=== PATIENT | male | born 1970 | race Two or more races ===

== ENCOUNTER 2025-05-07 11:14 | Emergency (ER) | payer MEDICAID ==
[~2025-05-07] VITALS: Ht 172.7 cm; Wt 70.7 kg
[2025-05-07 12:28] LABS: Hematocrit 45.8 % (41.0-53.0); Hemoglobin 16.2 g/dL (13.5-17.5); Mean Corpuscular Hemoglobin 32.9 pg (28.0-32.0); Mean Corpuscular Volume 92.8 fL (80.0-100.0); Nucleated Red Blood Cells % 0.0 %
--- NOTE | 2025-05-07 12:28 | ED.PDOC ---
HPI (NEURO) HPI Comments 55y M who presents to the ED for chief complaint of dizziness. Pt states he has been feeling sick for the past 4 days and states he has started to have nausea, vomiting with associated intermittent episodes of dizziness. Pt states he has noticed his dizziness episiodes have been preceded by episodes of nasuea, vomiting and waves of lower abdominal pain. Patient states when the symptoms are severe, he gets the spins." He denies any current dizziness. Pt states he has also been having intermittent, diffusely located, lower pelvic area abdominal pain with associated exacerbation of pain with episodes of dizziness and no relieving factors. Pt has also been having associated dysuria but otherwise denies any other symptoms. Pt denies any recent sick contacts. Pt has noted heart rate of 104, but otherwise has stable vitals including BP 111/87, 02 sat of 97% on room air, rr 17, and temp of 98.5F. Pt otherwise is alert and oriented x 4 and no noted changes in vision, speech or gait is noted. Pt otherwise denies any other symptoms at this time. Chief Complaint: Dizziness Time Seen by MD: 12:15 Reviewed Notes: Medications, Allergies Information Source: Patient Mode of Arrival: Ambulatory Brought in by: self Past Medical History PAST MEDICAL HISTORY: Denies Surgical History (Other): arm and shoulder surgery Family History Family History: Unknown Social History Smoker: Non-Smoker Alcohol: Denies ETOH Use Drugs: Denies Drug Use Lives In: Home Constitutional: denies: chills, diaphoresis, fatigue, fever, malaise, sweats, weakness, others EENTM: denies: blurred vision, double vision, ear bleeding, ear discharge, ear drainage, ear pain, ear ringing, eye pain, eye redness, hearing loss, mouth pain, mouth swelling, nasal discharge, nose bleeding, nose congestion, nose pain, photophobia, tearing, throat pain, throat swelling, voice changes, others Respiratory: denies: cough, hemoptysis, orthopnea, SOB at rest, shortness of breath, SOB with excertion, stridor, wheezing, others Cardiovascular: denies: chest pain, dizzy spells, diaphoresis, Dyspnea on exertion, edema, irregular heart beat, left arm pain, lightheadedness, palpitations, PND, syncope, others Gastrointestinal: reports: nausea, vomiting; denies: abdomen distended, abdominal pain, blood streaked bowels, constipated, diarrhea, dysphagia, difficulty swallowing, hematemesis, melena, poor appetite, poor fluid intake, rectal bleeding, rectal pain, others Genitourinary: denies: burning, dysuria, flank pain, frequency, hematuria, incontinence, penile discharge, penile sore, pain, testicle pain, testicle swelling, urgency, others Neurological: reports: dizziness; denies: fainting, headache, left sided numbness, left sided weakness, numbness, paresthesia, pre-existing deficit, right sided numbness, right sided weakness, seizure, speech problems, tingling, tremors, weakness, others Musculoskeletal: denies: back pain, gout, joint pain, joint swelling, muscle pain, muscle stiffness, neck pain, others Integumetry: denies: bruises, change in color, change in hair/nails, dryness, laceration, lesions, lumps, rash, wounds, others Allergic/Immunocompromised: denies: Difficulty Healing, Frequent Infections, Hives, Itching, others Hematologic/Lymphatic: denies: anemia, blood clots, easy bleeding, easy bruising, swollen glands, others Endocrine: denies: excessive hunger, excessive sweating, excessive thirst, excessive urination, flushing, intolerance to cold, intolerance to heat, unexplained weight gain, unexplained weight loss, others Psychiatric: denies: anxiety, bipolar disorder, depression, hopeless, panic disorder, schizophrenia, sleepless, suicidal, others All Other Systems: Reviewed and Negative Physical Exam General Appearance: No Apparent Distress HEENT: Other (Pupils and face symmetric. Moist mucous membranes.) Neck: Full Range of Motion, Non-Tender, Normal Inspection, Supple Respiratory: Lungs Clear, No Accessory Muscle Use, No Respiratory Distress, Normal Breath Sounds Cardiovascular: No Edema, No JVD, Regular Rate/Rhythm Breast Exam: Deferred Gastrointestinal: LLQ, RLQ, Soft, Suprapubic, Tenderness Genitalia: Deferred Pelvic: Deferred Rectal: Deferred Extremities: Normal inspection, Normal range of motion, Non-tender, No pedal edema Neurologic: Alert (Oriented x4), Normal Affect, Normal Mood, Other (Ambulatory. No gross focal deficit.) Cerebellar Function: NOT DONE Reflexes: NOT DONE Skin: Dry, Normal Color, Warm Lymphatic: NOT DONE EKG EKG : Comments Sinus rhythm, rate 83, normal intervals, normal axis, normal QRS, no ST/T changes. Was a procedure done? Was a procedure done?: No Differential Diagnosis (SZ) Seizure: Hypocalcemia, Hypoglycemia, Hyponatremia General Weakness: Anemia, Dehydration, Electrolyte imbalance, Encephalopathy, Hypovolemia, TIA, Vertigo: central, Vertigo: peripheral, Vestibular neuronitis, Other (UTI, sepsis, viral syndrome, gastroenteritis, gastritis, colitis, diverticulitis, among others) X-Ray, Labs, Meds, VS Vital Signs Date Time Temp Pulse Resp B/P (MAP) Pulse Ox O2 Delivery O2 Flow Rate FiO2 05/07/25 14:51 82 20 97 Room Air 05/07/25 14:51 98.6 82 20 115/69 (84) 97 98.6 05/07/25 12:49 98.7 100 20 122/85 (97) 96 98.7 05/07/25 11:45 83 05/07/25 11:31 98.5 104 17 111/87 (95) 97 98.5 Lab Test 05/07/25 15:10 05/07/25 12:43 05/07/25 11:55 05/07/25 11:33 Range/Units Troponin I High Sensitivity 6 7 7 </=54 ng/L Lactic Acid Level 1.4 0.4-2.0 mmol/L White Blood Count 8.2 4.4-10.8 10^3/uL Red Blood Count 4.94 4.5-5.90 10^6/uL Hemoglobin 16.2 13.5-17.5 g/dL Hematocrit 45.8 41.0-53.0 % Mean Corpuscular Volume 92.8 80.0-100.0 fL Mean Corpuscular Hemoglobin 32.9 H 28.0-32.0 pg Mean Corpuscular Hemoglobin Concent 35.4 32.0-36.0 g/dL Red Cell Distribution Width 12.6 11.8-14.3 % Platelet Count 288 140-450 10^3/uL Mean Platelet Volume 7.9 6.9-10.8 fL Neutrophils (%) (Auto) 72.9 37.0-80.0 % Lymphocytes (%) (Auto) 16.3 10.0-50.0 % Monocytes (%) (Auto) 9.9 0.0-12.0 % Eosinophils (%) (Auto) 0.3 0.0-7.0 % Basophils (%) (Auto) 0.6 0.0-2.0 % Neutrophils # (Auto) 6.0 1.6-8.6 10 ^3/uL Lymphocytes # (Auto) 1.3 0.4-5.4 10 ^3/uL Monocytes # (Auto) 0.8 0-1.3 10 ^3/uL Eosinophils # (Auto) 0 0-0.8 10 ^3/uL Basophils # (Auto) 0 0-0.2 10 ^3/uL Nucleated Red Blood Cells 0.0 % Sodium Level 133 L 136-145 mmol/L Potassium Level 3.5 3.5-5.1 mmol/L Chloride Level 99 98-107 mmol/L Carbon Dioxide Level 16 L 20-31 mmol/L Anion Gap 18 H 5-15 Blood Urea Nitrogen 16 9-23 mg/dL Creatinine 1.19 0.700-1.30 mg/dL Glomerular Filtration Rate Calc 72 >90 mL/min BUN/Creatinine Ratio 13.4 10.0-20.0 Serum Glucose 93 74-106 mg/dL Calcium Level 10.8 H 8.7-10.4 mg/dL Total Bilirubin 0.9 0.2-1.0 mg/dL Aspartate Amino Transferase (AST) 38 13-40 U/L Alanine Aminotransferase (ALT) 23 7-40 U/L Alkaline Phosphatase 96 46-116 U/L B-Type Natriuretic Peptide 13.27 0-100 pg/mL Total Protein 7.7 5.7-8.2 g/dL Albumin 5.2 H 3.2-4.8 g/dL POC Glucose 94 70-106 mg/dl Current Medications Medications (Trade) Dose Ordered Sig/Juan A Route Start Time Stop Time Status Last Admin Sodium Chloride 2,000 ml @ 1,000 mls/hr Q2H ONCE IV 05/07/25 12:30 05/07/25 14:29 DC 05/07/25 12:56 Ondansetron HCl (Zofran) 4 mg ONCE ONCE IV 05/07/25 12:30 05/07/25 12:33 DC 05/07/25 12:56 Meclizine HCl (Antivert Tablet) 50 mg ONCE ONCE PO 05/07/25 12:30 05/07/25 12:33 DC 05/07/25 12:56 Ceftriaxone Sodium 50 ml @ 100 mls/hr ONCE ONCE IV 05/07/25 15:15 05/07/25 15:44 DC 05/07/25 15:[address] [address] Ph: [phone] DIAGNOSTIC IMAGING Diagnostic Imaging Report : [id number] Signed PATIENT: VIRI DOVER EARLACCT: [id number] UNIT: [id number] : 1970 LOC: ER ROOM / BED: / AGE / SEX: 55 / M ADM STATUS: REG ER SERVICE 1217 ORDERING PHYSICIAN: ALPESH CRAWFORD MD PROCEDURE(s): ABPL - CT AB PEL WO CON-NO ORAL OR IV REASON: low abd pain, n/v, dizzy ORDER NUMBER(s): [id number], ACCESSION NUMBER(s): [id number] CT CT AB PEL WO CON-NO ORAL OR IV INDICATION: low abd pain, n/v, dizzy EXAM DATE: 05/07/2025 12:19 PM COMPARISON: None RADIATION DOSE: CTDIvol: 7 mGy, DLP: 425 mGy*cm PROCEDURE: Helical CT images were obtained of the abdomen and pelvis without IV contrast Sagittal and coronal reconstructions are provided. ORAL CONTRAST: None. ADDITIONAL IMAGES / REFORMATS: None All CT scans at this medical facility are performed using dose modulation techniques as appropriate to a performed exam i ncluding the following: Automated exposure control was utilized; adjustment of the MA and/or KV according to patient size; and use of iterative reconstruction technique. FINDINGS: LUNG BASE: Normal. LIVER: Normal. GALLBLADDER AND BILIARY TREE: No calcified gallstones. Normal caliber wall. No intra- or extrahepatic biliary ductal dilation. PANCREAS: Normal. SPLEEN: Normal. BOWEL: Mild colonic diverticulosis. Normal appendix. ADRENALS: Normal. KIDNEYS AND URETER: Punctate nonobstructive right kidney stone. BLADDER: Normal. REPRODUCTIVE ORGANS: Normal. LYMPH NODES:No lymphadenopathy. PERITONEUM: No ascites or free air. No other fluid collection. VESSELS: Scattered atherosclerotic calcifications are noted. RETROPERITONEUM: Normal. ABDOMINAL WALL: Normal. BONES: Scattered osseous degenerative changes are noted. IMPRESSION: No acute intraabdominal abnormality. Mild colonic diverticulosis. Normal appendix. Punctate nonobstructive right kidney stone. ATED BY: LEON REED MD DICTATED DATE/TIME: 05/07/251258 SIGNED BY: LEON REED MD SIGNED DATE/TIME: 05/07/251258 CC: X-Ray, Labs, Meds, VS Comment 55-year-old male with no significant past medical history complaining of nausea, vomiting, lower abdominal pain and dark urine, associated with intermittent episodes of dizziness. Initial vitals remarkable for heart rate 104 Exam remarkable for lower abdominal tenderness to palpation Rhythm strip independently interpreted by me: Sinus rhythm, rate eighty-three, no ectopy. CT abdomen and pelvis IMPRESSION: No acute intraabdominal abnormality. Mild colonic diverticulosis. Normal appendix. Punctate nonobstructive right kidney stone. CBC unremarkable, CMP remarkable for sodium 133, lactate normal, troponin and BNP negative, UA pending Patient treated with the following in the ED: 2 L 0.9 normal saline IV bolus, Zofran 4 mg IV, meclizine 50 mg p.o., Rocephin 1 g IV On re-evaluation, patient states he feels better. Vitals were stable. He is neurologically intact. Hospitalization was considered, however patient had an essentially unremarkable workup with the exception of nonobstructive right kidney stone on CT and UA which is still pending. Patient was treated with Rocephin IV to cover possible UTI, as he is feeling better and is appearing stable for discharge at this point. Rx Zofran, Bentyl, Keflex, meclizine Time of 1ST Reevaluation: 15:11 Reevaluation 1ST: Improved Patient Education/Counseling: Diagnosis, Treatment Family Education/Counseling: No Family Present Departure 1 Departure Time of Disposition: 15:00 Impression: Primary Impression: Nausea and vomiting Additional Impression: Dizziness Disposition: 01 HOME / SELF CARE / HOMELESS Condition: Stable Additional Instructions: Your blood tests were unremarkable. Your CT scan showed an incidental finding of a kidney stone in the right kidney. This is unlikely to be the cause of your symptoms. I have enclosed the report below. I have prescribed medication for your symptoms and antibiotics to cover a possible infection. Follow-up with your primary doctor in 1-2 days. Return to ER for persistent or worsening symptoms. [place] [id number] Ph: [phone] DIAGNOSTIC IMAGING Diagnostic Imaging Report : [id number] Signed PATIENT: VIRI DOVER ACCT: [id number] UNIT: [id number] : 1970 LOC: ER ROOM / BED: / AGE / SEX: 55 / M ADM STATUS: REG ER SERVICE 1217 ORDERING PHYSICIAN: ALPESH CRAWFORD MD PROCEDURE(s): ABPL - CT AB PEL WO CON-NO ORAL OR IV REASON: low abd pain, n/v, dizzy ORDER NUMBER(s): [id number], ACCESSION NUMBER(s): [id number] CT CT AB PEL WO CON-NO ORAL OR IV INDICATION: low abd pain, n/v, dizzy EXAM DATE: 05/07/2025 12:19 PM COMPARISON: None RADIATION DOSE: CTDIvol: 7 mGy, DLP: 425 mGy*cm PROCEDURE: Helical CT images were obtained of the abdomen and pelvis without IV contrast Sagittal and coronal reconstructions are provided. ORAL CONTRAST: None. ADDITIONAL IMAGES / REFORMATS: None All CT scans at this medical facility are performed using dose modulation techniques as appropriate to a performed exam including the following: Automated exposure control was utilized; adjustment of the MA and/or KV according to patient size; and use of iterative reconstruction technique. FINDINGS: LUNG BASE: Normal. LIVER: Normal. GALLBLADDER AND BILIARY TREE: No calcified gallstones. Normal caliber wall. No intra- or extrahepatic biliary ductal dilation. PANCREAS: Normal. SPLEEN: Normal. BOWEL: Mild colonic diverticulosis. Normal appendix. ADRENALS: Normal. KIDNEYS AND URETER: Punctate nonobstructive right kidney stone. BLADDER: Normal. REPRODUCTIVE ORGANS: Normal. LYMPH NODES:No lymphadenopathy. PERITONEUM: No ascites or free air. No other fluid collection. VESSELS: Scattered atherosclerotic calcifications are noted. RETROPERITONEUM: Normal. ABDOMINAL WALL: Normal. BONES: Scattered osseous degenerative changes are noted. IMPRESSION: No acute intraabdominal abnormality. Mild colonic diverticulosis. Normal appendix. Punctate nonobstructive right kidney stone. ATED BY: LEON REED MD DICTATED DATE/TIME: 05/07/25 3019 e-Prescriptions Cephalexin Monohydrate (Cephalexin) 500 Mg Cap 1 CAP PO QID for 10 Days, #40 CAP Prov: ALPESH CRAWFORD MD 05/07/25 Meclizine HCl (Meclizine 25) 25 Mg Tab 25 MG PO Q8HP PRN, #30 TAB Prn dizziness Prov: ALPESH CRAWFORD MD 05/07/25 Dicyclomine Hcl (BENTYL CAPSULE) 10 Mg Cp 2 CAP PO Q6HP PRN, #30 CAP 11 Refills Prn abdominal pain Prov: ALPESH CRAWFORD MD 05/07/25 Ondansetron Odt 4MG Tab (ZOFRAN PO) 4 Mg Tb 4 MG PO TID PRN, #30 TAB Prn nausea/vomiting ODT TAB-DISSOLVE IN MOUTH, THEN SWALLOW Prov: ALPESH CRAWFORD MD 05/07/25 Discharged With: Relative Critical Care Note Critical Care Time?: No Stability Stability form required: No Heart Score Heart Score: Heart Score Response (Comments) Value History N/A 0 EKG N/A 0 Age N/A 0 Risk Factors N/A 0 Troponin N/A 0 Total 0 I personally scribed for ALPESH CRAWFORD MD (MICHEL) on 05/07/25 at 12:28. Electronically submitted by Deb Velazquez ([email or web address]). I personally scribed for ALPESH CRAWFORD MD (MICHEL) on 05/07/25 at 13:22. Electronically submitted by Deb Velazquez ([email or web address]). ALPESH CRAWFORD MD May 07, 2025 12:28
[2025-05-07 12:45] LABS: Alanine Aminotransferase 23 U/L (7-40); Albumin 5.2 g/dL (3.2-4.8); Alkaline Phosphatase 96 U/L (46-116); Anion Gap 18 (5-15); BUN/Creatinine Ratio 13.4 (10.0-20.0); Blood Urea Nitrogen 16 mg/dL (9-23); Calcium 10.8 mg/dL (8.7-10.4); Carbon Dioxide 16 mmol/L (20-31); Chloride 99 mmol/L (98-107); Glucose 93 mg/dL (74-106); Potassium 3.5 mmol/L (3.5-5.1); Sodium 133 mmol/L (136-145); Total Protein 7.7 g/dL (5.7-8.2)
[2025-05-07 12:46] LABS: Bilirubin, Total 0.9 mg/dL (0.2-1.0)
[2025-05-07] MEDS: ONDANSETRON HCL 4 MG/2 ML VIAL IV ONE (12:56)
[2025-05-07] MEDS: MECLIZINE HCL 25 MG TAB PO ONE (12:56)
[2025-05-07] MEDS: SODIUM CHLORIDE 0.9% 2,000 ML IV ONE (12:56)
--- NOTE | 2025-05-07 13:02 | DVH ---
CT CT AB PEL WO CON-NO ORAL OR IV INDICATION: low abd pain, n/v, dizzy EXAM DATE: 05/07/2025 12:19 PM COMPARISON: None RADIATION DOSE: CTDIvol: 7 mGy, DLP: 425 mGy*cm PROCEDURE: Helical CT images were obtained of the abdomen and pelvis without IV contrast Sagittal and coronal reconstructions are provided. ORAL CONTRAST: None. ADDITIONAL IMAGES / REFORMATS: None All C T scans at this medical facility are performed using dose modulation techniques as appropriate to a p erformed exam including the following: Automated exposure control was utilized; adjustment of the MA and/or KV according to patient size; and use of iterative reconstruction technique. FINDINGS: LUNG BASE: Normal. LIVER: Normal. GALLBLADDER AND BILIARY TREE: No calcified gallstones. Normal caliber wall. No intra- or extrahepatic biliary ductal dilation. PANCREAS: Normal. SPLEEN: Normal. BOWEL: Mild colonic diverticulosis. Normal appendix. ADRENALS: Normal. KIDNEYS AND URETER: Punctate nonobstructive right kidney stone. BLADDER: Normal. REPRODUCTIVE ORGANS: Normal. LYMPH NODES:No lymphadenopathy. PERITONEUM: No ascites or free air. No other fluid collection. VESSELS: Scattered atherosclerotic calcifications are noted. RETROPERITONEUM: Normal. ABDOMINAL WALL: Normal. BONES: Scattered osseous degenerative changes are noted. IMPRESSION: No acute intraabdominal abnormality. Mild colonic diverticulosis. Normal appendix. Punctate nonobstructive right kidney stone.
[2025-05-07 14:51] VITALS: BP 115/69; PULSE 82; RESP 20; TEMP 98.6; O2SAT 97
[2025-05-07] MEDS ORDERED: DICY10CA PO (15:16)
[2025-05-07] MEDS ORDERED: CEPH500C PO (15:16)
[2025-05-07] MEDS ORDERED: ZOFR4T PO (15:16)
[2025-05-07] MEDS ORDERED: MECL1TAB42 PO (15:16)
[2025-05-07] MEDS: cefTRIAXone 1GM/50ML D5W 50 ML IV ONE (15:21)
--- NOTE | 2025-05-08 06:35 | ECG ---
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
== END 2025-05-07 16:01 | disposition home or self-care (01) ==
LOC: ER 11:14
DX: R42 Dizziness and giddiness (principal); R11.2 Nausea with vomiting, unspecified; R10.30 Lower abdominal pain, unspecified; R82.998 Other abnormal findings in urine; R06.02 Shortness of breath
CPT/HCPCS: 36415; 74176; 80053; 82947; 83605; 83880; 84484; 85025; 87040; 93005; 96361; 96365; 96375; 99285; J0696; J2405; J7030; J8597; 82962

== ENCOUNTER 2025-05-10 16:52 | Inpatient (IN) | payer MEDICAID ==
[~2025-05-10] VITALS: Ht 175.3 cm; Wt 76.3 kg
[~2025-05-10 16:52] MED LIST: CEPH500C PO; DICY10CA PO; MECL1TAB42 PO; ZOFR4T PO
--- NOTE | 2025-05-10 17:00 | ECG ---
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
--- NOTE | 2025-05-10 17:25 | DVH ---
XY CHEST PORTABLE, HISTORY: near syncope COMPARISON: None None TECHNICAL DATA: 1 view of the chest was obtained. FINDINGS: Lines and tubes: None Cardiomediastinal silhouette: normal Pulmonary vasculature: normal Lung expansion: normal Lung airspace: normal Lung interstitium: normal Pleura: normal Pneumothorax: no Bones: Unremarkable Other: no IMPRESSION: No acute intrathoracic abnormality.
[2025-05-10 17:33] LABS: Hematocrit 41.8 % (41.0-53.0); Hemoglobin 14.5 g/dL (13.5-17.5); Mean Corpuscular Hemoglobin 31.9 pg (28.0-32.0); Mean Corpuscular Volume 92.1 fL (80.0-100.0); Nucleated Red Blood Cells % 0.0 %
[2025-05-10 17:37] LABS: Anion Gap 20 (5-15); Calcium 9.9 mg/dL (8.7-10.4)
[2025-05-10 17:42] LABS: BUN/Creatinine Ratio 10.5 (10.0-20.0); Blood Urea Nitrogen 12 mg/dL (9-23)
[2025-05-10] MEDS: SODIUM CHLORIDE 0.9% 1,000 ML IV ONE (17:46)
[2025-05-10] MEDS: PANTOPRAZOLE 40 MG/10 ML VIAL INJ IV ONE (17:47)
[2025-05-10 18:00] VITALS: PULSE 84; RESP 16; O2SAT 96
[2025-05-10 18:03] LABS: Carbon Dioxide 18 mmol/L (20-31); Chloride 97 mmol/L (98-107); Glucose 69 mg/dL (74-106); Potassium 3.3 mmol/L (3.5-5.1); Sodium 135 mmol/L (136-145)
[2025-05-10 19:41] LABS: Urine Protein, UAD 1+ (Negative)
--- NOTE | 2025-05-10 20:10 | ED.PDOC ---
History of Present Illness HPI Comments 55 y/o M is BIBA for c/c generalized weakness, lightheadedness, and dizziness. Per EMS report, patient endorses on sudden onset of symptoms, while at an [facility] facility, this evening. Patient reports only notable event of taking a new prescription medication he was given following previous ED visit for similar symptoms on 05/07/25. Otherwise, endorses on having no significant history. Denies any nausea, vomiting, abdominal pain, fever, chills, urinary symptoms, chest pain, shortness of breath, or further associated symptoms. Chief Complaint: General Weakness Time Seen by MD: 16:50 Reviewed Notes: Nurses Notes, Line Out Man Notes, Medications, Allergies Allergies: Coded Allergies: NO KNOWN ALLERGIES (Unverified , 05/07/25) Home Meds Active Scripts Cephalexin Monohydrate (Cephalexin) 500 Mg Cap, 1 CAP PO QID for 10 Days, #40 CAP Prov:ALPESH CRAWFORD MD 05/07/25 Meclizine HCl (Meclizine 25) 25 Mg Tab, 25 MG PO Q8HP PRN, #30 TAB Prn dizziness Prov:ALPESH CRAWFORD MD 05/07/25 Dicyclomine Hcl (BENTYL CAPSULE) 10 Mg Cp, 2 CAP PO Q6HP PRN, #30 CAP 11 Refills Prn abdominal pain Prov:ALPESH CRAWFORD MD 05/07/25 Ondansetron Odt 4MG Tab (ZOFRAN PO) 4 Mg Tb, 4 MG PO TID PRN, #30 TAB Prn nausea/vomiting ODT TAB-DISSOLVE IN MOUTH, THEN SWALLOW Prov:ALPESH CRAWFORD MD 05/07/25 Information Source: Patient, Emergency Med Personnel Mode of Arrival: EMS Severity: Moderate Timing: Hours Duration: Since onset Prehospital treatment: 12 Lead EKG, Accucheck, Hotel Housekeeper Past Medical History PAST MEDICAL HISTORY: Denies Surgical History: Denies all surgeries Family History Family History: Unknown Social History Smoker: Non-Smoker Alcohol: Denies ETOH Use Drugs: Denies Drug Use Lives In: Home All Other Systems: Reviewed and Negative (Comprehensive systems review obtained and negative except for what is stated in the HPI.) Physical Exam General Appearance: No Apparent Distress, Normal HEENT: Normal ENT Inspection, Pharynx Normal, TMs Normal, Other (dry mucus membranes ) Neck: Full Range of Motion, Non-Tender, Normal, Normal Inspection Respiratory: Chest Non-Tender, Lungs Clear, No Accessory Muscle Use, No Respiratory Distress, Normal Breath Sounds Cardiovascular: No Edema, No JVD, No Murmur, No Gallop, Normal Peripheral Pulses, Regular Rate/Rhythm Breast Exam: Deferred Gastrointestinal: No Organomegaly, Non Tender, No Pulsatile Mass, Normal Bowel Sounds, Soft Genitalia: Deferred Pelvic: Deferred Rectal: Deferred Extremities: No calf tenderness, Normal capillary refill, Normal inspection, Normal range of motion, Non-tender, No pedal edema Musculoskeletal : Apperance: Normal Neurologic: Alert, military equipment specialist II-XII nml as Tested, No Motor Deficits, Normal Affect, Normal Mood, No Sensory Deficits Cerebellar Function: Normal Reflexes: Normal Skin: Dry, Normal Color, Warm Lymphatic: No Adenopathy Was a procedure done? Was a procedure done?: No EKG EKG : Pulse Rate (adult): 98 [place]: Normal Cardiac Rhythm: NSR Block: None Hypertrophy: None ST: Normal Differential Dx Considerations may include: Anemia, Dehydration, Electrolyte imbalance, Encephalopathy, Hypovolemia, TIA, Vertigo: peripheral, Vestibular neuronitis, UTI, sepsis, viral syndrome, gastroenteritis, gastritis, colitis, diverticulitis, among others X-Ray, Labs, Meds, VS Vital Signs Date Time Temp Pulse Resp B/P (MAP) Pulse Ox O2 Delivery O2 Flow Rate FiO2 05/10/25 20:35 98.2 75 14 146/73 (97) 96 98.2 05/10/25 20:10 98 05/10/25 18:00 84 16 96 Room Air* 0 21 05/10/25 17:47 99.0 95 16 124/82 (96) 95 99.0 05/10/25 16:52 98 Lab Test 05/10/25 20:11 05/10/25 19:25 05/10/25 18:05 05/10/25 17:12 Range/Units Troponin I High Sensitivity 6 7 6 </=54 ng/L Urine Color Yellow Yellow Urine Clarity Clear Clear Urine pH 6.0 5.0-9.0 Urine Specific [place] 1.030 1.001-1.035 Urine Protein 1+ H Negative Urine Ketones 4+ H Negative Urine Blood 1+ H Negative /uL Urine Nitrite Negative Negative Urine Bilirubin Negative Negative Urine Urobilinogen 3 H Negative mg/dL Urine Leukocyte Esterase Negative Negative /uL Urine RBC 6 0 - 3 /hpf Urine Microscopic WBC 6 H 0-3 /HPF Urine Squamous Epithelial Cells Few <5 /hpf Urine Bacteria None seen None Seen /hpf Urine Hyaline Casts Few 0 - 2 /lpf Urine Mucus Few None Seen Urine Glucose Normal Normal mg/dL White Blood Count 4.7 # 4.4-10.8 10^3/uL Red Blood Count 4.54 4.5-5.90 10^6/uL Hemoglobin 14.5 13.5-17.5 g/dL Hematocrit 41.8 41.0-53.0 % Mean Corpuscular Volume 92.1 80.0-100.0 fL Mean Corpuscular Hemoglobin 31.9 28.0-32.0 pg Mean Corpuscular Hemoglobin Concent 34.7 32.0-36.0 g/dL Red Cell Distribution Width 12.5 11.8-14.3 % Platelet Count 258 140-450 10^3/uL Mean Platelet Volume 7.6 6.9-10.8 fL Neutrophils (%) (Auto) 64.4 37.0-80.0 % Lymphocytes (%) (Auto) 24.4 10.0-50.0 % Monocytes (%) (Auto) 9.9 0.0-12.0 % Eosinophils (%) (Auto) 0.8 0.0-7.0 % Basophils (%) (Auto) 0.5 0.0-2.0 % Neutrophils # (Auto) 3.0 1.6-8.6 10 ^3/uL Lymphocytes # (Auto) 1.2 0.4-5.4 10 ^3/uL Monocytes # (Auto) 0.5 0-1.3 10 ^3/uL Eosinophils # (Auto) 0 0-0.8 10 ^3/uL Basophils # (Auto) 0 0-0.2 10 ^3/uL Nucleated Red Blood Cells 0.0 % Sodium Level 135 L 136-145 mmol/L Potassium Level 3.3 L 3.5-5.1 mmol/L Chloride Level 97 L 98-107 mmol/L Carbon Dioxide Level 18 L 20-31 mmol/L Anion Gap 20 H 5-15 Blood Urea Nitrogen 12 9-23 mg/dL Creatinine 1.14 0.700-1.30 mg/dL Glomerular Filtration Rate Calc 76 >90 mL/min BUN/Creatinine Ratio 10.5 10.0-20.0 Serum Glucose 69 L 74-106 mg/dL Calcium Level 9.9 8.7-10.4 mg/dL Current Medications Medications (Trade) Dose Ordered Sig/Juan A Route Start Time Stop Time Status Last Admin Sodium Chloride 1,000 ml @ 1,000 mls/hr Q1H ONCE IV 05/10/25 17:00 05/10/25 17:59 DC 05/10/25 17:46 Pantoprazole Sodium (Protonix) 40 mg ONCE ONCE IV 05/10/25 17:00 05/10/25 17:01 DC 05/10/25 17:47 [place] [id number] Ph: [phone] DIAGNOSTIC IMAGING Diagnostic Imaging Report : [id number] Signed PATIENT: VIRI DOVER ACCT: [id number] UNIT: [id number] : 1970 LOC: ER ROOM / BED: / AGE / SEX: 55 / M ADM STATUS: REG ER SERVICE 57 ORDERING PHYSICIAN: MALENA GEORGES MD PROCEDURE(s): CXRP - CHEST PORTABLE REASON: near syncope ORDER NUMBER(s): [id number], ACCESSION NUMBER(s): [id number] CHEST PORTABLE, HISTORY: near syncope COMPARISON: None None TECHNICAL DATA: 1 view of the chest was obtained. FINDINGS: Lines and tubes: None Cardiomediastinal silhouette: normal Pulmonary vasculature: normal Lung expansion: normal Lung airspace: normal Lung interstitium: normal Pleura: normal Pneumothorax: no Bones: Unremarkable Other: no IMPRESSION: No acute intrathoracic abnormality. ATED BY: LEON REED MD DICTATED DATE/TIME: 05/10/251722 SIGNED BY: LEON REED MD SIGNED DATE/TIME: 05/10/251722 CC: Time of 1ST Reevaluation: 17:20 Reevaluation 1ST: Unchanged Patient Education/Counseling: Diagnosis, Treatment Family Education/Counseling: No Family Present Additional Information Previous visits reviewed: May 07, 2025 encounter for nausea and vomiting The following tests were ordered, and results were reviewed by me: EKG, CXR, UA, CBC, BMP, troponin Additional Information was gathered from interviewing the following independent historians: EMS I reviewed and agreed with the following test results read by other providers: CXR I discussed treatment and results with medical personnel and: patient SEPSIS Sepsis Screen Date sepsis recognized/suspect: May 10, 2025 Time Sepsis recognized/suspect: 1700 Recent Procedure: No On Antibiotic Therapy: No Respiratory Rate >20: No Heart Rate >90: Yes Temp<36 C (96.8 F) or >38.3 C: No SBP <90 or MAP <65 mmHG: No New Acute Mental Status Change: No Is the patient on CPAP, BIPAP,: No Physician Orders Chest Portable (05/10/25 16:58) Electrocardigram (05/10/25 19:58) Vital Signs Date Time Temp Pulse Resp B/P (MAP) Pulse Ox O2 Delivery O2 Flow Rate FiO2 05/10/25 20:35 98.2 75 14 146/73 (97) 96 98.2 05/10/25 20:10 98 05/10/25 18:00 84 16 96 Room Air* 0 21 05/10/25 17:47 99.0 95 16 124/82 (96) 95 99.0 05/10/25 16:52 98 Laboratory Tests Test 05/10/25 17:12 White Blood Count 4.7 10^3/uL (4.4-10.8) # Medications Medications Dose Ordered Sig/Juan A Route Start Time Stop Time Status Last Admin Dose Admin Pantoprazole Sodium 40 mg ONCE ONCE IV 05/10/25 17:00 05/10/25 17:01 DC 05/10/25 17:47 Sodium Chloride 1,000 ml @ 1,000 mls/hr Q1H ONCE IV 05/10/25 17:00 05/10/25 17:59 DC 05/10/25 17:46 Departure 1 Departure Time of Disposition: 22:04 (Patient with a worsening weakness inability to care for himself. We will admit patient for further workup and expert consultation) Impression: Primary Impression: Dizziness Additional Impressions: Nausea and vomiting Qualified Codes: R11.2 - Nausea with vomiting, unspecified Generalized weakness Disposition: ADMITTED INPATIENT Admit to: Med Surg Condition: Serious Critical Care Note Critical Care Time?: No Stability Stability form required: No Heart Score Heart Score: Heart Score Response (Comments) Value History Moderate Suspicious 1 EKG Normal 0 Age 45-64 1 Risk Factors No known risk factors 0 Troponin Normal limit 0 Total 2 I personally scribed for MALENA GEORGES MD ([email or web address]) on 05/10/25 at 20:10. Electronically submitted by Fercho Yepez ([email or web address]). MALENA GEORGES MD May 10, 2025 20:10
[2025-05-10] MEDS ORDERED: HYDROcodone-ACET 5/325MG TAB PO PRN (23:30)
[2025-05-10] MEDS: SODIUM CHLORIDE 0.9% 1,000 ML IV SCH (23:30)
[2025-05-10] MEDS ORDERED: ACETAMINOPHEN 325 MG TAB PO PRN (23:30)
[2025-05-10] MEDS ORDERED: DOCUSATE SOD 100 MG CAP PO PRN (23:30)
[2025-05-10] MEDS ORDERED: ONDANSETRON HCL 4 MG/2 ML VIAL IV PRN (23:30)
[2025-05-10] MEDS ORDERED: MECLIZINE HCL 25 MG TAB PO PRN (23:30)
--- NOTE | 2025-05-10 23:49 | DVHHP2 ---
History of Present Illness Reason for Visit: Dizziness History of Present Illness The patient is a 55-year-old male who denies past medical history presented to [facility] ED with complaint of generalized weakness. Patient reports symptoms progressively get worse with lightheadedness, dizziness, nausea, vomiting, getting worse that prompted this visit. Patient was seen and evaluated in the ED, laboratory data shows WBC 4.7, platelets 258, sodium 135, potassium 3.3, BUN 12, creatinine 1.14, glucose 69, calcium 9.9, troponin 7, blood pressure 108/68, heart rate 68, temperature 97.6 F, O2 saturation 99% on room air. Chest x-ray showed no acute intrathoracic abnormality. Please see medication orders section in the computer. On my assessment, patient denies chest pain, no headache, no dizziness, no diaphoresis, no shortness of breath, no nausea or vomiting at this moment, no fever, no chills. Patient was admitted for further evaluation and medical management. Past Medical History Denies past medical history Past Surgical History Denies all surgeries Family History Reviewed, noncontributory to the management of this case. Past Social History The patient lives at home, denies smoking, alcohol or illicit drugs abuse. Review of Systems Constitutional: Yes: Weakness; No: Fever, Chills, Sweats, Malaise, Other Eyes: No: Pain, Vision change, Conjunctivae inflammation, Eyelid inflammation, Other, Redness ENT: No: Ear pain, Ear discharge, Nose pain, Nose discharge, Nose congestion, Mouth pain, Mouth swelling, Throat pain, Throat swelling, Other Respiratory: No: Cough, Dry, Shortness of breath, SOB with excertion, Wheezing, Hemoptysis, Pleuritic Pain, Sputum, Wheezing, Other Cardiovascular: Lt Headedness; No: Chest Pain, Palpitations, Orthopnea, Paroxysmal Noc. Dyspnea, Edema, Other Gastrointestinal: Nausea, Vomiting; No: Abdominal Pain, Diarrhea, Constipation, Melena, Hematochezia, Other Genitourinary: No Dysuria, No Frequency, No Incontinence, No Hematuria, No Retention, No Other Musculoskeletal: No: other, neck pain, shoulder pain, arm pain, back pain, hand pain, leg pain, foot pain Skin: No: Rash, Lesions, Jaundice, Bruising, Other Neurological: No: Weakness, Numbness, Incoordination, Change in speech, Confusion, Seizures, Other Allergies: Coded Allergies: NO KNOWN ALLERGIES (Unverified , 05/07/25) Medications Current Medications Medications Dose Ordered Sig/Juan A Route Start Time Stop Time Status Last Admin Dose Admin Pantoprazole Sodium 40 mg DAILY IV 05/11/25 10:00 Meclizine HCl 25 mg Q8HPRN PRN PO 05/10/25 23:30 Sodium Chloride 1,000 ml @ 60 mls/hr [id number] IV 05/10/25 23:30 Acetaminophen/ Hydrocodone Bitart 1 tab Q4HP PRN PO 05/10/25 23:30 Ondansetron HCl 4 mg Q4HP PRN IV 05/10/25 23:30 Docusate Sodium 100 mg BIDPRN PRN PO 05/10/25 23:30 Acetaminophen 650 mg Q6HP PRN PO 05/10/25 23:30 Exam Vital Signs Vital Signs Date Time Temp Pulse Resp B/P (MAP) Pulse Ox O2 Delivery O2 Flow Rate FiO2 05/10/25 23:06 97.6 68 16 108/68 (81) 99 97.6 05/10/25 18:00 Room Air* 0 21 General Appearance: Alert, Oriented X3, Cooperative, No acute distress HEENT: Atraumatic, PERRLA, EOMI, Mucous membr. moist/pink Respiratory: Normal air movement Cardiovascular: Regular rate, Normal S1, Normal S2, No murmurs Abdominal: Normal bowel sounds, Soft, No tenderness, No hepatospenomegaly, No masses Extremities: No clubbing, No cyanosis, No edema, Normal pulses, No tenderness/swelling Skin: No rashes, No significant lesion Neuro: Normal speech, Normal tone, Sensation intact, Cranial nerves 3-12 NL, Reflexes 2+, Other (Generalized weakness) Psych/Mental Status: Mental status NL, Mood NL Labs/Xrays Labs Test 05/10/25 20:11 05/10/25 19:25 05/10/25 17:12 Range/Units Troponin I High Sensitivity 6 </=54 ng/L Urine Color Yellow Yellow Urine Clarity Clear Clear Urine pH 6.0 5.0-9.0 Urine Specific [place] 1.030 1.001-1.035 Urine Protein 1+ H Negative Urine Ketones 4+ H Negative Urine Blood 1+ H Negative /uL Urine Nitrite Negative Negative Urine Bilirubin Negative Negative Urine Urobilinogen 3 H Negative mg/dL Urine Leukocyte Esterase Negative Negative /uL Urine RBC 6 0 - 3 /hpf Urine Microscopic WBC 6 H 0-3 /HPF Urine Squamous Epithelial Cells Few <5 /hpf Urine Bacteria None seen None Seen /hpf Urine Hyaline Casts Few 0 - 2 /lpf Urine Mucus Few None Seen Urine Glucose Normal Normal mg/dL White Blood Count 4.7 # 4.4-10.8 10^3/uL Red Blood Count 4.54 4.5-5.90 10^6/uL Hemoglobin 14.5 13.5-17.5 g/dL Hematocrit 41.8 41.0-53.0 % Mean Corpuscular Volume 92.1 80.0-100.0 fL Mean Corpuscular Hemoglobin 31.9 28.0-32.0 pg Mean Corpuscular Hemoglobin Concent 34.7 32.0-36.0 g/dL Red Cell Distribution Width 12.5 11.8-14.3 % Platelet Count 258 140-450 10^3/uL Mean Platelet Volume 7.6 6.9-10.8 fL Neutrophils (%) (Auto) 64.4 37.0-80.0 % Lymphocytes (%) (Auto) 24.4 10.0-50.0 % Monocytes (%) (Auto) 9.9 0.0-12.0 % Eosinophils (%) (Auto) 0.8 0.0-7.0 % Basophils (%) (Auto) 0.5 0.0-2.0 % Neutrophils # (Auto) 3.0 1.6-8.6 10 ^3/uL Lymphocytes # (Auto) 1.2 0.4-5.4 10 ^3/uL Monocytes # (Auto) 0.5 0-1.3 10 ^3/uL Eosinophils # (Auto) 0 0-0.8 10 ^3/uL Basophils # (Auto) 0 0-0.2 10 ^3/uL Nucleated Red Blood Cells 0.0 % Sodium Level 135 L 136-145 mmol/L Potassium Level 3.3 L 3.5-5.1 mmol/L Chloride Level 97 L 98-107 mmol/L Carbon Dioxide Level 18 L 20-31 mmol/L Anion Gap 20 H 5-15 Blood Urea Nitrogen 12 9-23 mg/dL Creatinine 1.14 0.700-1.30 mg/dL Glomerular Filtration Rate Calc 76 >90 mL/min BUN/Creatinine Ratio 10.5 10.0-20.0 Serum Glucose 69 L 74-106 mg/dL Calcium Level 9.9 8.7-10.4 mg/dL PATIENT: VIRI DOVERACCT: [id number] UNIT: [id number] : 1970 LOC: ER ROOM / BED: / AGE / SEX: 55 / M ADM STATUS: REG ER SERVICE 57 ORDERING PHYSICIAN: MALENA GEORGES MD PROCEDURE(s): CXRP - CHEST PORTABLE REASON: near syncope ORDER NUMBER(s): [id number], ACCESSION NUMBER(s): [id number] CHEST PORTABLE, HISTORY: near syncope COMPARISON: None None TECHNICAL DATA: 1 view of the chest was obtained. FINDINGS: Lines and tubes: None Cardiomediastinal silhouette: normal Pulmonary vasculature: normal Lung expansion: normal Lung airspace: normal Lung interstitium: normal Pleura: normal Pneumothorax: no Bones: Unremarkable Other: no IMPRESSION: No acute intrathoracic abnormality. SEPSIS Sepsis Screen Date sepsis recognized/suspect: May 10, 2025 Time Sepsis recognized/suspect: 1700 Recent Procedure: No On Antibiotic Therapy: No Respiratory Rate >20: No Heart Rate >90: Yes Temp<36 C (96.8 F) or >38.3 C: No SBP <90 or MAP <65 mmHG: No New Acute Mental Status Change: No Is the patient on CPAP, BIPAP,: No Physician Orders Chest Portable (05/10/25 16:58) Electrocardigram (05/10/25 19:58) Pantoprazole (Protonix) (05/11/25 10:00) Meclizine Tablet (Antivert Tablet) (05/10/25 23:30) Allergies (05/10/25 23:18) Code Status (05/10/25 23:18) 2 Gm Sodium Diet (05/11/25 Breakfast) Sodium Chloride 0.9% (05/10/25 23:30) Oxygen Per Hour (05/10/25 23:18) Hydrocodone-Acet 5/325mg Tab ([place] 5/32 (05/10/25 23:30) Ondansetron Hcl (Zofran) (05/10/25 23:30) Docusate Sodium Capsule (Colace Capsule) (05/10/25 23:30) Complete Blood Count (05/11/25 04:00) Comprehensive Metabolic Panel (05/11/25 04:00) Condition: Serious (05/10/25 23:18) Acetaminophen Tablet (Tylenol Tablet) (05/10/25 23:30) Bedrest With Bathroom Privileg (05/10/25 23:18) Sequential Compression Device (05/10/25 ) Vital Signs Date Time Temp Pulse Resp B/P (MAP) Pulse Ox O2 Delivery O2 Flow Rate FiO2 05/10/25 23:06 97.6 68 16 108/68 (81) 99 97.6 05/10/25 20:35 98.2 75 14 146/73 (97) 96 98.2 05/10/25 20:10 98 05/10/25 18:00 84 16 96 Room Air* 0 21 05/10/25 17:47 99.0 95 16 124/82 (96) 95 99.0 05/10/25 16:52 98 Laboratory Tests Test 05/10/25 17:12 White Blood Count 4.7 10^3/uL (4.4-10.8) # Medications Medications Dose Ordered Sig/Juan A Route Start Time Stop Time Status Last Admin Dose Admin Pantoprazole Sodium 40 mg ONCE ONCE IV 05/10/25 17:00 05/10/25 17:01 DC 05/10/25 17:47 40 MG Sodium Chloride 1,000 ml @ 1,000 mls/hr Q1H ONCE IV 05/10/25 17:00 05/10/25 17:59 DC 05/10/25 17:46 1,000 MLS/HR Assessment/Plan Assessment/Plan Dizziness Hypokalemia Nausea and vomiting Nausea with vomiting, unspecified Generalized weakness Plan 1. Admit to telemetry unit 2. Breathing treatment 3. Pain control management 4. Management of fluids and electrolytes 5. Consultation for hospitalist 6. Diagnostic tests chest x-ray 7. DVT prophylaxis on SCDs 8. Repeat labs CBC, CMP in a.m. 9. Continue with current medical management 10. Treatment plan discussed with patient and RN. Patient verbalized understan iman. Plan discussed with: Patient, Other (RN) My Orders Orders - BRAXTON QUESADA DNP Procedure Category Date Status Time Pantoprazole PHA 05/11/25 In Process (Protonix) 10:00 Meclizine Tablet PHA 05/10/25 In Process (Antivert Tablet) 23:30 Allergies TARYN 05/10/25 In Process 23:18 Code Status CODE 05/10/25 Transmitted 23:18 2 Gm Sodium Diet DIET 05/11/25 Transmitted Breakfast Sodium Chloride 0.9% PHA 05/10/25 In Process 23:30 Oxygen Per Hour RT 05/10/25 Transmitted 23:18 Hydrocodone-Acet PHA 05/10/25 In Process 5/325mg Tab ([place]sc[place] 23:30 Ondansetron Hcl PHA 05/10/25 In Process (Zofran) 23:30 Docusate Sodium PHA 05/10/25 In Process Capsule (Colace 23:30 Complete Blood Count LAB 05/11/25 Verified 04:00 Comprehensive LAB 05/11/25 Verified Metabolic Panel 04:00 Condition: Serious TARYN 05/10/25 In Process 23:18 Acetaminophen Tablet PHA 05/10/25 In Process (Tylenol Tablet) 23:30 Bedrest With Bathroom TARYN 05/10/25 In Process Privileg 23:18 Sequential TARYN 05/10/25 In Process Compression Device Problem List: (1) Dizziness (2) Hypokalemia (3) Nausea and vomiting (4) Nausea with vomiting, unspecified (5) Generalized weakness Date of Service: May 10, 2025 Billing Provider: BRAXTON QUESADA DNP Common Visit Codes: [id number] INP/OBS CARE (HIGH) BRAXTON QUESADA DNP May 10, 2025 23:49
[2025-05-10] MEDS: POTASSIUM CHL 20 Meq TABLET PO ONE (23:54)
[2025-05-11] VITALS (8 sets, daily range): BP systolic 107–122; BP diastolic 60–75; PULSE 51–82; RESP 17–20; TEMP 97.1–98.4; O2SAT 96–98
[2025-05-11] MEDS ORDERED: NITROGLYCERIN 0.4 MG SL TAB SL PRN
[2025-05-11] MEDS ORDERED: MORPHINE SULFATE INJ 2 MG/ml SYRG IV PRN
[2025-05-11 04:20] LABS: Hematocrit 35.6 % (41.0-53.0); Hemoglobin 12.4 g/dL (13.5-17.5); Mean Corpuscular Hemoglobin 32.1 pg (28.0-32.0); Mean Corpuscular Volume 92.0 fL (80.0-100.0); Nucleated Red Blood Cells % 0.0 %
[2025-05-11 04:34] LABS: Alanine Aminotransferase 17 U/L (7-40); Albumin 3.8 g/dL (3.2-4.8); Alkaline Phosphatase 64 U/L (46-116); Anion Gap 10 (5-15); BUN/Creatinine Ratio 13.3 (10.0-20.0); Bilirubin, Total 0.3 mg/dL (0.2-1.0); Blood Urea Nitrogen 13 mg/dL (9-23); Calcium 9.2 mg/dL (8.7-10.4); Carbon Dioxide 25 mmol/L (20-31); Chloride 104 mmol/L (98-107); Glucose 82 mg/dL (74-106); Potassium 3.8 mmol/L (3.5-5.1); Sodium 139 mmol/L (136-145)
[2025-05-11 04:35] LABS: Total Protein 5.6 g/dL (5.7-8.2)
[2025-05-11] MEDS: PANTOPRAZOLE 40 MG/10 ML VIAL INJ IV SCH (09:31)
--- NOTE | 2025-05-11 14:16 | DVHPN2 ---
Assessment/Plan Assessment/Plan progress note 55 yo M with no sig PMH admitted for dizziness. reported room spinning aggravated by sudden movement. patient just ate so will defer jeferson halpike now. physical exam aox4 PERLLA EOM normal MMM clear breath sounds s1 s2 rrr abdomen soft, nontender no LE edema labs ekg imaging reviewed assessment and plan dizziness r/o central possible BPPV meclizine, Zofran patient just ate, will defer tomorrow for jeferson halpike MRI diet reg dvt ppx ambulatory full code Plan discussed with: Patient My Orders Orders - SERGIO LOWERY MD Procedure Category Date Status Time Ondansetron Po PHA 05/11/25 Logged (Zofran Po) 22:00 Meclizine Tablet PHA 05/11/25 Logged (Antivert Tablet) 22:00 Date of Service: May 11, 2025 Billing Provider: SERGIO LOWERY MD Common Visit Codes: [id number] INP/OBS CARE(HIGH) SERGIO LOWERY MD May 11, 2025 14:16
--- NOTE | 2025-05-11 16:56 | DVH ---
PROCEDURE: MRI BRAIN HEAD WO CONTRAST INDICATION: r/o central vertiog EXAM DATE: 05/11/2025 04:10 PM COMPARISON: None TECHNIQUE: MRI of the brain without intravenous contrast. FINDINGS: Diffusion weighted images of the brain demonstrate no evidence of acute infarction. There is no evidence of acute intracranial hemorrhage, extra-axial collection, mass effect, midline s hift, herniation or hydrocephalus. The ventricles, sulci and cisterns appear age appropriate. The signal intensities of the brain parenchyma are within normal limits. The major vascular flow voids are present. Mild scattered mucosal thickening in the paranasal sinuses. The mastoids are clear. The surrounding soft tissues and osseous structures are unremarkable. Small 5 mm left intraparotid ly mph node. IMPRESSION: No evidence of acute intracranial abnormalities.
[2025-05-11] MEDS: MECLIZINE HCL 25 MG TAB PO SCH (21:22)
[2025-05-11] MEDS: ONDANSETRON ODT 4 MG TAB PO SCH (21:22)
[2025-05-12] VITALS (8 sets, daily range): BP systolic 101–111; BP diastolic 60–65; PULSE 51–75; RESP 16–20; TEMP 97.1–98.8; O2SAT 96–99
[2025-05-12] MEDS ORDERED: ZOFR4T PO ×2 (15:19)
[2025-05-12] MEDS ORDERED: MECL-90 PO ×2 (15:19)
--- NOTE | 2025-05-12 15:22 | DVHDS2 ---
Discharge Summary Date of Admission May 10, 2025 at 23:48 Date of Discharge: May 12, 2025 Labs/Diagnostic Data: Laboratory Results Test 05/11/25 03:39 05/10/25 20:11 05/10/25 19:25 White Blood Count 4.4 10^3/uL (4.4-10.8) Red Blood Count 3.87 10^6/uL (4.5-5.90) Hemoglobin 12.4 g/dL (13.5-17.5) Hematocrit 35.6 % (41.0-53.0) Mean Corpuscular Volume 92.0 fL (80.0-100.0) Mean Corpuscular Hemoglobin 32.1 pg (28.0-32.0) Mean Corpuscular Hemoglobin Concent 34.9 g/dL (32.0-36.0) Red Cell Distribution Width 12.7 % (11.8-14.3) Platelet Count 209 10^3/uL (140-450) Mean Platelet Volume 7.8 fL (6.9-10.8) Neutrophils (%) (Auto) 44.9 % (37.0-80.0) Lymphocytes (%) (Auto) 40.0 % (10.0-50.0) Monocytes (%) (Auto) 10.5 % (0.0-12.0) Eosinophils (%) (Auto) 3.9 % (0.0-7.0) Basophils (%) (Auto) 0.7 % (0.0-2.0) Neutrophils # (Auto) 2.0 10 ^3/uL (1.6-8.6) Lymphocytes # (Auto) 1.8 10 ^3/uL (0.4-5.4) Monocytes # (Auto) 0.5 10 ^3/uL (0-1.3) Eosinophils # (Auto) 0.2 10 ^3/uL (0-0.8) Basophils # (Auto) 0 10 ^3/uL (0-0.2) Nucleated Red Blood Cells 0.0 % Sodium Level 139 mmol/L (136-145) Potassium Level 3.8 mmol/L (3.5-5.1) Chloride Level 104 mmol/L (98-107) Carbon Dioxide Level 25 mmol/L (20-31) Anion Gap 10 (5-15) Blood Urea Nitrogen 13 mg/dL (9-23) Creatinine 0.98 mg/dL (0.700-1.30) Glomerular Filtration Rate Calc 91 mL/min (>90) BUN/Creatinine Ratio 13.3 (10.0-20.0) Serum Glucose 82 mg/dL (74-106) Calcium Level 9.2 mg/dL (8.7-10.4) Total Bilirubin 0.3 mg/dL (0.2-1.0) Aspartate Amino Transferase (AST) 28 U/L (13-40) Alanine Aminotransferase (ALT) 17 U/L (7-40) Alkaline Phosphatase 64 U/L (46-116) Total Protein 5.6 g/dL (5.7-8.2) Albumin 3.8 g/dL (3.2-4.8) Troponin I High Sensitivity 6 ng/L (</=54) Urine Color Yellow (Yellow) Urine Clarity Clear (Clear) Urine pH 6.0 (5.0-9.0) Urine Specific [place] 1.030 (1.001-1.035) Urine Protein 1+ (Negative) Urine Ketones 4+ (Negative) Urine Blood 1+ /uL (Negative) Urine Nitrite Negative (Negative) Urine Bilirubin Negative (Negative) Urine Urobilinogen 3 mg/dL (Negative) Urine Leukocyte Esterase Negative /uL (Negative) Urine RBC 6 /hpf (0 - 3) Urine Microscopic WBC 6 /HPF (0-3) Urine Squamous Epithelial Cells Few /hpf (<5) Urine Bacteria None seen /hpf (None Seen) Urine Hyaline Casts Few /lpf (0 - 2) Urine Mucus Few (None Seen) Urine Glucose Normal mg/dL (Normal) Other Laboratory Tests 05/11/25 03:39 Brief Hx & Hospital Course: 55 yo M with no sig PMH admitted for dizziness. reported room spinning aggravated by sudden movement. patient improved the next day, jeferson hallpike done after with no nystagmus. stable to dc with zofran and emclizine. MRI negative. needs ENT outpatien t Condition at Discharge: Good Final Diagnosis/Problems List dizziness ruled out central possible BPPV Discharge Disposition: Home Discharge Instruct/Medications Diet: Regular Activity: No Restrictions, As Tolerated Follow Up/Referral: ENT Medications: meclezine zofran Scheduled Meclizine Hcl (Meclizine Hcl), 25 MG PO Q8HR Ondansetron Odt 4MG Tab (Zofran Po), 4 MG PO Q8HR Discontinued Medications Cephalexin Monohydrate (Cephalexin), 1 CAP PO QID Discontinued Reason: Prescription changed Dicyclomine Hcl (Bentyl Capsule), 2 CAP PO Q6HP PRN Discontinued Reason: Prescription changed Meclizine HCl (Meclizine 25), 25 MG PO Q8HP PRN Discontinued Reason: Prescription changed Ondansetron Odt 4MG Tab (Zofran Po), 4 MG PO TID PRN Discontinued Reason: Prescription changed Discharge Statement: "Patient was advised to return to the ER or call 911 if any headaches, dizziness, shortness of breath, chest pain, abdominal pain, bleeding, fevers, or worsening of medical condition. Patient was counseled about treatment plan, medications, possible side effects, patientverbalized understanding. All questions were answered to the best of my ability. This discharge took greater then 30 minutes in planning, reviewing documentation, counseling the patient, and discussing with other team members." ASSESSMENT ASSESSMENT Assessment BPPV Date of Service: May 12, 2025 Billing Provider: SERGIO LOWERY MD Common Visit Codes: 73515-BWH/OBS DISCH DAY >30min SERGIO LOWERY MD May 12, 2025 15:22
[2025-05-13 00:29] VITALS: BP 101/63; PULSE 63; RESP 15; TEMP 98.3; O2SAT 93
[2025-05-13 04:56] VITALS: BP 93/57; PULSE 66; RESP 16; TEMP 98.1; O2SAT 93
--- NOTE | 2025-05-13 07:09 | DVHINCON2 ---
Date of Service if different f: May 13, 2025 Time of Service: 06:35 Consultation ([facility]) Consulting Physician: ANAMIKA WASHINGTON MD Labs Laboratory Tests Test 05/10/25 19:25 05/10/25 20:11 05/11/25 03:39 Urine Color Yellow (Yellow) Urine Clarity Clear (Clear) Urine pH 6.0 (5.0-9.0) Urine Specific [place] 1.030 (1.001-1.035) Urine Protein 1+ (Negative) Urine Ketones 4+ (Negative) Urine Blood 1+ /uL (Negative) Urine Nitrite Negative (Negative) Urine Bilirubin Negative (Negative) Urine Urobilinogen 3 mg/dL (Negative) Urine Leukocyte Esterase Negative /uL (Negative) Urine RBC 6 /hpf (0 - 3) Urine Microscopic WBC 6 /HPF (0-3) Urine Squamous Epithelial Cells Few /hpf (<5) Urine Bacteria None seen /hpf (None Seen) Urine Hyaline Casts Few /lpf (0 - 2) Urine Mucus Few (None Seen) Urine Glucose Normal mg/dL (Normal) Troponin I High Sensitivity 6 ng/L (</=54) White Blood Count 4.4 10^3/uL (4.4-10.8) Red Blood Count 3.87 10^6/uL (4.5-5.90) Hemoglobin 12.4 g/dL (13.5-17.5) Hematocrit 35.6 % (41.0-53.0) Mean Corpuscular Volume 92.0 fL (80.0-100.0) Mean Corpuscular Hemoglobin 32.1 pg (28.0-32.0) Mean Corpuscular Hemoglobin Concent 34.9 g/dL (32.0-36.0) Red Cell Distribution Width 12.7 % (11.8-14.3) Platelet Count 209 10^3/uL (140-450) Mean Platelet Volume 7.8 fL (6.9-10.8) Neutrophils (%) (Auto) 44.9 % (37.0-80.0) Lymphocytes (%) (Auto) 40.0 % (10.0-50.0) Monocytes (%) (Auto) 10.5 % (0.0-12.0) Eosinophils (%) (Auto) 3.9 % (0.0-7.0) Basophils (%) (Auto) 0.7 % (0.0-2.0) Neutrophils # (Auto) 2.0 10 ^3/uL (1.6-8.6) Lymphocytes # (Auto) 1.8 10 ^3/uL (0.4-5.4) Monocytes # (Auto) 0.5 10 ^3/uL (0-1.3) Eosinophils # (Auto) 0.2 10 ^3/uL (0-0.8) Basophils # (Auto) 0 10 ^3/uL (0-0.2) Nucleated Red Blood Cells 0.0 % Sodium Level 139 mmol/L (136-145) Potassium Level 3.8 mmol/L (3.5-5.1) Chloride Level 104 mmol/L (98-107) Carbon Dioxide Level 25 mmol/L (20-31) Anion Gap 10 (5-15) Blood Urea Nitrogen 13 mg/dL (9-23) Creatinine 0.98 mg/dL (0.700-1.30) Glomerular Filtration Rate Calc 91 mL/min (>90) BUN/Creatinine Ratio 13.3 (10.0-20.0) Serum Glucose 82 mg/dL (74-106) Calcium Level 9.2 mg/dL (8.7-10.4) Total Bilirubin 0.3 mg/dL (0.2-1.0) Aspartate Amino Transf (AST/SGOT) 28 U/L (13-40) Alanine Aminotransferase (ALT/SGPT) 17 U/L (7-40) Alkaline Phosphatase 64 U/L (46-116) Total Protein 5.6 g/dL (5.7-8.2) Albumin 3.8 g/dL (3.2-4.8) Microbiology Date/Time Source Procedure Growth Status 05/11/25 03:50 Nose MRSA Screen - Final Complete Appearance: Stated age Psychomotor activity: WNL, Calm Behavioral: Cooperative Eye contact: Appropriate Speech: WNL Affect: Appropriate, Mood Congruent Mood: Euthymic Thought processes: Linear/Goal-directed Thought content: Hallucinations Suicidal ideations: Absent Homicidal ideations: Absent Orientation: Person, Place, Time, Situation Memory intact: Recent Intellect: Average Abstractability: WNL Concentration: Adequate Attention: Adequate Judgement: WNL Insight: Fair Vitals Vital Signs Date Time Temp Pulse Resp B/P (MAP) Pulse Ox O2 Delivery O2 Flow Rate FiO2 05/13/25 04:56 98.1 66 16 93/57 (69) 93 98.1 05/12/25 20:00 Room Air* 0 21 Current medications Current Medications Medications Dose Ordered Sig/Juan A Route Start Time Stop Time Status Last Admin Dose Admin Sodium Chloride 1,000 ml @ 60 mls/hr [id number] IV 05/10/25 23:30 05/13/25 01:30 60 MLS/HR Ondansetron HCl 4 mg Q8HR PO 05/11/25 22:00 05/13/25 05:50 4 MG Meclizine HCl 25 mg Q8HR PO 05/11/25 22:00 05/13/25 05:50 25 MG Medication adjusted: Yes Labs ordered: No Psychotherapy provided: No Type: Voluntary History of Present Illness Reason for Consult : psychiatric evaluation PER RN NOTE: Paged Dr. Wilks, informed him when discussing DC planning with the patient, he explained to me that he does not have anyone to call for a ride, informed patient that we can provide him a ride home with call a car. Patient then stated that he was homeless and was asking for resources in regards to his mental health and asking if he would be able to speak with a psychiatrist, patient stated that he has been hearing voices. Asked patient if the voices were asking him to harm himself or other and if they were expressing negativity about himself. Patient denies the voices telling him to harm himself or others, but did not disclose any information in regards what the voices were saying. MD stated to hold DC orders and keep patient, new orders placed. PSYCHIATRIST HPI: The patient was seen and evaluated at [facility] ED via telepsychiatry platform. 55 yr old male reported reported that he has heard some voices. He stated they come and go. He said they have been going on a couple years and he has difficulty talking about them. He said they happen at different times of the day. He said they don't tell him to hurt himself. He said his mood has been good. He feels like he is under control and doesn't have much anxiety. He sleeps well ("no complaints"). Appetite is good. He denied any recent head trauma and denied taking any medications. He denied any recent substance use and denied using stimulants and fentanyl. He denied having suicidal or homicidal ideation, plan or intent. He denied having visual hallucinations. Past Psychiatric History : No h/o hospitalizations, suicide attempts or treatment. Past Medical History: none Current Medications: none NKDA Substance use: Denied use of alcohol and other substance use. Social History : living in car for over a year. 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 His disability ran out in Nov 2024. Has been out of work since injury. 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 Never , 20 yr old daughter who lives with his parents in [place]. [facility] Health Insurance. Diagnosis: UNSPECIFIED PSYCHOTIC DISORDER F29 Formulation: This 55 yr old male appears to suffer from auditory hallucinations. He may benefit from a low dose antipsychotic and getting into outpatient MH therapy. He does not warrant admission. Plan: 1. Safety. The patient is a low risk for self harm and may be managed as an outpatient. 2. Legal-Voluntary. 3. Medication:Recommend prescribing a thirty day supply with two refills of the following: Abilify 2.5mg qam 4. Outpatient follow up: follow up with outpatient mental health for medication management and therapy. 5. case discussed with SALLY Hayes. Assessment/Diagnosis/Plan Reviewed: Labs, Medications, Previous Orders ANAMIKA WASHINGTON MD May 13, 2025 06:36
[2025-05-13 08:00] VITALS: PULSE 74; PULSE 76; RESP 18; O2SAT 97
[2025-05-13 08:18] VITALS: BP 107/67; PULSE 75; RESP 18; TEMP 96.8; O2SAT 97
[2025-05-13] MEDS ORDERED: ARIP2TAB PO ×2 (09:10)
[2025-05-13 12:21] VITALS: BP 115/66; PULSE 69; RESP 20; TEMP 97.5; O2SAT 97
--- NOTE | 2025-05-13 13:25 | DVHPN2 ---
Assessment/Plan Assessment/Plan progress note 55 yo M with no sig PMH admitted for dizziness. reported room spinning aggravated by sudden movement. likely bppv, discharged yesterday, but later expressed auditory halucinations, seen and cleared by psych. also expressed homelessness, ss consult, resource given physical exam aox4 PERLLA EOM normal MMM clear breath sounds s1 s2 rrr abdomen soft, nontender no LE edema labs ekg imaging reviewed assessment and plan dizziness possible BPPV homelessness auditory halucinations meclizine, Zofran jeferson halpike normal dizziness resolved MRI clear start abilify diet reg dvt ppx ambulatory full code Plan discussed with: Patient My Orders Orders - SERGIO LOWERY MD Procedure Category Date Status Time Discharge DISCHARGE 05/12/25 Transmitted 15:20 Schedule For Dc TARYN 05/12/25 In Process Clinic F/U 15:20 *Tele Psych Consult CONS 05/12/25 Transmitted 17:21 * Light Technician CONS 05/12/25 Transmitted Consult Date of Service: May 13, 2025 Billing Provider: SERGIO LOWERY MD Common Visit Codes: [id number] INP/OBS CARE(HIGH) SERGIO LOWERY MD May 13, 2025 13:25
== END 2025-05-13 16:00 | disposition home or self-care (01) | DRG 111 ==
LOC: EDSEX 16:52 → EDBD 16:52 → ER 16:52 → OVERFLOW 23:48 → TELE-WESTW 05-11 03:55
PROVIDERS: ADMIT Student in an Organized Health Care Education/Training Program; ATTEND Student in an Organized Health Care Education/Training Program
DX: H81.13 Benign paroxysmal vertigo, bilateral (principal); F29 Unspecified psychosis not due to a substance or known physiological condition; E87.6 Hypokalemia; Z59.02 Unsheltered homelessness
CPT/HCPCS: 36415; 70551; 71045; 80048; 80053; 81001; 84484; 85025; 87081; 93005; 96361; 96374; G0378; J2470; Q0162

== ENCOUNTER 2025-05-17 16:24 | Emergency (ER) | payer MEDICAID ==
[~2025-05-17] VITALS: Ht 175.3 cm; Wt 77.2 kg
[~2025-05-17 16:24] MED LIST changes: +ARIP2TAB PO; +MECL-90 PO
[2025-05-17] MEDS ORDERED: PRED10TA PO (16:48)
[2025-05-17] MEDS ORDERED: AMOX500T3 PO (16:48)
--- NOTE | 2025-05-17 16:49 | ED.PDOC ---
History of Present Illness HPI Comments 55-year-old male brought by paramedics from the street. Brought in because he was having cough for the past few days along with diarrhea. He does not have a place to live. Denies any past medical surgical history. Denies use of alcohol. Denies any other symptoms. Chief Complaint: Cough Time Seen by MD: 16:27 Reviewed Notes: Nurses Notes, Medications, Allergies Allergies: Coded Allergies: NO KNOWN ALLERGIES (Unverified , 05/07/25) Home Meds Active Scripts Aripiprazole (Abilify) 2 Mg Tab, 1 TAB PO DAILY for 30 Days, #30 TAB 2 Refills Prov:SERGIO LOWERY MD 05/13/25 Ondansetron Odt 4MG Tab (ZOFRAN PO) 4 Mg Tb, 4 MG PO Q8HR for 14 Days, #42 TAB Prov:SERGIO LOWERY MD 05/12/25 Meclizine Hcl (Meclizine Hcl) 25 Mg Tab, 25 MG PO Q8HR for 30 Days, #90 TAB Prov:SERGIO LOWERY MD 05/12/25 Information Source: Patient, Emergency Med Personnel Mode of Arrival: EMS Severity: Mild Timing: Days Duration: Since onset Past Medical History PAST MEDICAL HISTORY: Denies Surgical History: Denies all surgeries Family History Family History: Unknown Social History Smoker: Non-Smoker Alcohol: Denies ETOH Use Drugs: Denies Drug Use Lives In: Home Constitutional: denies: chills, diaphoresis, fatigue, fever, malaise, sweats, weakness, others EENTM: denies: blurred vision, double vision, ear bleeding, ear discharge, ear drainage, ear pain, ear ringing, eye pain, eye redness, hearing loss, mouth pain, mouth swelling, nasal discharge, nose bleeding, nose congestion, nose pain, photophobia, tearing, throat pain, throat swelling, voice changes, others Respiratory: reports: cough; denies: hemoptysis, orthopnea, SOB at rest, shortness of breath, SOB with excertion, stridor, wheezing, others Cardiovascular: denies: chest pain, dizzy spells, diaphoresis, Dyspnea on exertion, edema, irregular heart beat, left arm pain, lightheadedness, palpitations, PND, syncope, others Gastrointestinal: reports: diarrhea; denies: abdomen distended, abdominal pain, blood streaked bowels, constipated, dysphagia, difficulty swallowing, hematemesis, melena, nausea, poor appetite, poor fluid intake, rectal bleeding, rectal pain, vomiting, others Genitourinary: denies: burning, dysuria, flank pain, frequency, hematuria, incontinence, penile discharge, penile sore, pain, testicle pain, testicle swelling, urgency, others Neurological: denies: dizziness, fainting, headache, left sided numbness, left sided weakness, numbness, paresthesia, pre-existing deficit, right sided numbness, right sided weakness, seizure, speech problems, tingling, tremors, weakness, others Musculoskeletal: denies: back pain, gout, joint pain, joint swelling, muscle pain, muscle stiffness, neck pain, others Integumetry: denies: bruises, change in color, change in hair/nails, dryness, laceration, lesions, lumps, rash, wounds, others Allergic/Immunocompromised: denies: Difficulty Healing, Frequent Infections, Hives, Itching, others Hematologic/Lymphatic: denies: anemia, blood clots, easy bleeding, easy bruising, swollen glands, others Endocrine: denies: excessive hunger, excessive sweating, excessive thirst, excessive urination, flushing, intolerance to cold, intolerance to heat, unexplained weight gain, unexplained weight loss, others Psychiatric: denies: anxiety, bipolar disorder, depression, hopeless, panic disorder, schizophrenia, sleepless, suicidal, others Physical Exam General Appearance: Moderate Distress HEENT: Normal ENT Inspection, Pharynx Normal, TMs Normal Neck: Full Range of Motion, Non-Tender, Normal, Normal Inspection Respiratory: Chest Non-Tender, Lungs Clear, No Accessory Muscle Use, No Respiratory Distress, Normal Breath Sounds Cardiovascular: No Edema, No JVD, No Murmur, No Gallop, Normal Peripheral Pulses, Regular Rate/Rhythm Breast Exam: Deferred Gastrointestinal: No Organomegaly, Non Tender, No Pulsatile Mass, Normal Bowel Sounds, Soft Genitalia: Deferred Pelvic: Deferred Rectal: Deferred Extremities: No calf tenderness, Normal capillary refill, Normal inspection, Normal range of motion, Non-tender, No pedal edema Musculoskeletal : Apperance: Normal Neurologic: Alert, television director II-XII nml as Tested, No Motor Deficits, Normal Affect, Normal Mood, No Sensory Deficits Cerebellar Function: NOT DONE Reflexes: NOT DONE Skin: Dry, Normal Color, Warm Peripheral Pulses: 3+ Radial (R), 3+ Radial (L) Lymphatic: No Adenopathy Was a procedure done? Was a procedure done?: No Differential Dx Considerations may include: Dehydration Bronchitis X-Ray, Labs, Meds, VS Patient alert. Complaining of cough diarrhea. Vitals stable. Answering questions. Establish intravenous access. Was given fluids. Chest x-ray reviewed does not show any acute changes mild inflammation. Possible pneumonitis. Was given prescription of prednisone amoxicillin antibiotic. Explained to the patient. Was told to follow up with his primary care physician. Was told to come back if there is any problem. Time of 1ST Reevaluation: 16:46 Reevaluation 1ST: Improved Patient Education/Counseling: Diagnosis, Treatment, Prognosis, Need For Follow Up Family Education/Counseling: No Family Present SEPSIS Sepsis Screen Physician Orders Chest Portable (05/17/25 16:43) 1 Liter Bolus Of 0.9% Ns (05/17/25 16:45) Thiamine Inj (05/17/25 16:45) Blood Alcohol (05/17/25 16:43) Departure 1 Departure Time of Disposition: 16:47 Impression: Primary Impression: Pneumonitis Additional Impression: Dehydration Disposition: 01 HOME / SELF CARE / HOMELESS Condition: Good e-Prescriptions Amoxicillin Trihydrate (Amoxicillin) 500 Mg Tab 1 TAB PO TID for 5 Days, #15 TAB Prov: ADRIANA HOGUE MD 05/17/25 Prednisone (Prednisone) 10 Mg Tab 10 MG PO DAILY for 5 Days, #5 MG Prov: ADRIANA HOGUE MD 05/17/25 Discharged With: Self Critical Care Note Critical Care Time?: No Stability Stability form required: No Heart Score Heart Score: Heart Score Response (Comments) Value History N/A 0 EKG N/A 0 Age N/A 0 Risk Factors N/A 0 Troponin N/A 0 Total 0 ADRIANA HOGUE MD May 17, 2025 16:49
--- NOTE | 2025-05-17 17:07 | DVH ---
CHEST RADIOGRAPH Indication: sob Technique: Single frontal view of the chest was obtained COMPARISON: XY CHEST PORTABLE on DOS: 05/10/25 FINDINGS: Lines and Tubes: None Lungs: Clear Pleura: No effusion. No pneumothorax. Cardiomediastinal contours: Unremarkable Bones: Unremarkable IMPRESSION: No acute disease.
[2025-05-17] MEDS: SODIUM CHLORIDE 0.9% 1,000 ML IV ONE (18:49)
[2025-05-17] MEDS: THIAMINE 100mg/ml INJ (200mg/2ml VIAL) IV ONE (18:49)
[2025-05-18 00:47] VITALS: PULSE 77; RESP 12; O2SAT 99
[2025-05-19 10:29] VITALS: BP 122/73; PULSE 98; RESP 17; TEMP 98.1; O2SAT 95
== END 2025-05-18 07:34 | disposition home or self-care (01) ==
LOC: EDBD 16:24 → ER 16:24
DX: J98.4 Other disorders of lung (principal); E86.0 Dehydration; Z79.899 Other long term (current) drug therapy
CPT/HCPCS: 36415; 71045; 80320; 84484; 96361; 96374; 99285; J3411; J7030